=== PATIENT | male | born 1970 | race Two or more races ===

== ENCOUNTER 2023-11-26 01:47 | Emergency (ER) | payer MEDICAID ==
[~2023-11-26] VITALS: Ht 167.6 cm; Wt 110.0 kg
[~2023-11-26 01:47] MED LIST: CLIN1CAP70; SULF-35
[2023-11-26 01:56] VITALS: TEMP 98.8
[2023-11-26] MEDS: SODIUM CHLORIDE 0.9% 1,000 ML IV ONE (02:00)
[2023-11-26 02:13] LABS: Urine Bacteria None Seen /hpf (None Seen)
[2023-11-26 02:15] VITALS: O2SAT 95; O2SAT 96
[2023-11-26] MEDS ORDERED: IOHEXOL 300 MG/ML 100ML BOTTLE IJ ONE (02:16)
[2023-11-26 02:36] LABS: Urine Blood 2+ /uL (Negative); Urine Clarity Clear (Clear); Urine Color Light-Yellow (Yellow); Urine Mucus FEW (None Seen); Urine Protein, UAD Negative (Negative); Urine Specific Gravity 1.015 (1.001-1.035); Urine Urobilinogen Normal (Negative); Urine WBC 1 /hpf (0 - 3)
[2023-11-26] MEDS: MORPHINE SULFATE 4 MG/ML SYR/VIAL IV ONE (02:41)
[2023-11-26] MEDS: ONDANSETRON HCL 4 MG/2 ML VIAL IV ONE (02:41)
[2023-11-26 02:48] LABS: Alanine Aminotransferase 51 U/L (7-40); Albumin 4.5 g/dL (3.2-4.8); Alkaline Phosphatase 185 U/L (46-116); Anion Gap 11 (5-15); Aspartate Aminotransferase 39 U/L (13-40); BUN/Creatinine Ratio 15.6 (10.0-20.0); Blood Urea Nitrogen 15 mg/dL (9-23); Calcium 9.5 mg/dL (8.7-10.4); Carbon Dioxide 21 mmol/L (20-30); Chloride 109 mmol/L (98-107); Glucose 113 mg/dL (74-106); Sodium 141 mmol/L (136-145)
[2023-11-26 02:49] LABS: Bilirubin, Total 0.5 mg/dL (0.2-1.0)
[2023-11-26 02:50] LABS: Lactic Acid w/Reflex 2.3 mmol/L (0.4-2.0)
[2023-11-26 02:58] LABS: Basophils # (auto) 0.1 10 ^3/uL (0-0.2); Basophils % (auto) 0.6 % (0.0-2.0); Eosinophils # (auto) 0.2 10 ^3/uL (0-0.8); Eosinophils % (auto) 1.7 % (0.0-7.0); Hematocrit 43.8 % (41.0-53.0); Hemoglobin 15.5 g/dL (13.5-17.5); Lymphocytes # (auto) 2.4 10 ^3/uL (0.4-5.4); Lymphocytes % (auto) 25.4 % (10.0-50.0); Mean Corpuscular Hemoglobin 30.4 pg (28.0-32.0); Mean Corpuscular Hgb Conc. 35.3 g/dL (32.0-36.0); Monocytes # (auto) 0.7 10 ^3/uL (0-1.3); Monocytes % (auto) 7.9 % (0.0-12.0); Neutrophils % (auto) 64.4 % (37.0-80.0); Nucleated Red Blood Cells % 0.1 %; Platelet Count (auto) 281 10^3/uL (140-450); Red Blood Cells 5.09 10^6/uL (4.5-5.90); White Blood Cell 9.3 10^3/uL (4.4-10.8)
[2023-11-26 03:02] LABS: Blood Alcohol < 3.0 mg/dL (<10)
[2023-11-26 03:31] LABS: Amphetamine Screen, Urine Pos (NEGATIVE); Barbiturate Scree,Urine Neg (NEGATIVE); Benzodiazephine Screen, Urine Neg (NEGATIVE); Cocaine Screen, Urine Neg (NEGATIVE)
[2023-11-26 03:32] LABS: Cannabinoid Screen, Urine Pos (NEGATIVE); Opiate Scree,Urine Neg (NEGATIVE); Phencyclidine Screen, Urine Neg (NEGATIVE)
[2023-11-26] MEDS ORDERED: TAMS-35 PO (04:04)
[2023-11-26 05:15] VITALS: BP 160/112; PULSE 76; RESP 18; O2SAT 96
== END 2023-11-26 05:15 | disposition home or self-care (01) ==
LOC: EDBD 01:47 → ER 01:47
DX: N23 Unspecified renal colic (principal); F17.210 Nicotine dependence, cigarettes, uncomplicated; Z79.899 Other long term (current) drug therapy
CPT/HCPCS: 36415; 74177; 80053; 80307; 80320; 81001; 83605; 84484; 85025; 93005; 96361; 96374; 96375; 99285; J2270; J2405; J7030; Q9967

== ENCOUNTER 2024-10-22 19:26 | Emergency (ER) | payer MEDICAID ==
[~2024-10-22] VITALS: Ht 177.8 cm; Wt 100.0 kg
[~2024-10-22 19:26] MED LIST changes: +TAMS-35 PO
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
[2024-10-22 20:40] LABS: Urine Protein, UAD Negative (Negative)
--- NOTE | 2024-10-22 21:05 | DVH ---
Procedure: US GALLBLADDER Study Date and Requested Time: 10/22/2024 08:20 PM History: RUQ pain Comparison: CT abdomen and pelvis 11/26/2023 Technique: Multiple high resolution younger-scale images obtained of the right upper quadrant of the abd omen with color Doppler for evaluation of blood flow and vascularity as indicated. Findings: Liver normal in size, measuring 14 cm in length, with heterogeneous echotexture and normal contours. No evidence of focal hepatic lesions, intrahepatic or extrahepatic ductal dilatation. Common bile abhay t measures 0.5 cm in diameter. Gallbladder unremarkable with no evidence of abnormal wall thickening, gallstones, biliary sludge, or pericholecystic fluid. Negative sonographic Wallace's sign. Pancreas only partially visualized due to overlying bowel gas but is otherwise unremarkable. Right kidney measures 0.4 cm in length, with normal contours, echotexture, and cortical thickness. No evidence of hydronephrosis. Complex right renal Upper to the interpolar region 1.4 cm cyst with asso ciated calcifications. Partially visualized inferior vena cava unremarkable. Impression: Complex right renal upper to interpolar region 1.4 cm cyst with associated calcifications. Renal prot ocol CT should be considered for further evaluation. Mild hepatic steatosis.
[2024-10-22 21:31] LABS: Hematocrit 46.3 % (41.0-53.0); Hemoglobin 16.0 g/dL (13.5-17.5); Mean Corpuscular Hemoglobin 29.9 pg (28.0-32.0); Mean Corpuscular Volume 86.5 fL (80.0-100.0); Nucleated Red Blood Cells % 0.1 %
[2024-10-22 21:41] LABS: Albumin 4.6 g/dL (3.2-4.8); Anion Gap 9 (5-15); BUN/Creatinine Ratio 17.7 (10.0-20.0); Blood Urea Nitrogen 20 mg/dL (9-23); Calcium 9.6 mg/dL (8.7-10.4); Carbon Dioxide 24 mmol/L (20-31); Lipase 43 U/L (12-53); Potassium 3.9 mmol/L (3.5-5.1); Sodium 141 mmol/L (136-145); Total Protein 6.8 g/dL (5.7-8.2)
[2024-10-22 21:42] LABS: Bilirubin, Total 0.6 mg/dL (0.2-1.0)
[2024-10-22 21:47] LABS: Alanine Aminotransferase 45 U/L (7-40); Alkaline Phosphatase 150 U/L (46-116); Chloride 108 mmol/L (98-107); Glucose 110 mg/dL (74-106)
--- NOTE | 2024-10-22 23:10 | DVH ---
Exam: CT CT AB PEL WITH IV CON ONLY History: right sided pain, renal mass COMPARISON: CT CT AB PEL WITH IV CON ONLY on DOS: 11/26/23 Technique: Multidetector spiral CT of the abdomen and pelvis was performed from lung bases to pubic s ymphysis. Intravenous contrast was administered during this examination. Portal venous imaging was obtained. Axial, coronal and sagittal multiplanar reformats were performed by the technologist on a separate workstation. Radiation Dose : 1. Abdomen/Pelvis: CTDIvol 26.5 mGy, DLP 1429 mGy*cm. CONTRAST: Type of contrast: Omnipaque Contrast injected: 100 ml Findings: Lung Bases: No acute or significant lung base finding. Normal heart size. No pleural or pericardial effusion. Liver: The liver is normal in size. No focal lesions. Normal hepatic vascular enhancement. Diffuse s teatosis. Gallbladder and Biliary Tree: Unremarkable Spleen: Unremarkable Pancreas: The pancreas is normal in appearance without focal lesions or abnormal enhancement. Adrenal Glands: Unremarkable Kidneys: No hydronephrosis. Multiple bilateral renal cysts are seen Bladder: Unremarkable Bowel: The stomach is grossly normal in appearance. Concentric wall thickening throughout the colon m ay reflect underdistention versus mild colitis. The appendix is not visualized; however, no secondar y findings of acute appendicitis identified. Ascites: Absent Lymphadenopathy: No mesenteric, retroperitoneal or periportal lymphadenopathy. Abdominal Wall and Mesentery: Unremarkable. Vasculature: The visualized abdominal aorta is normal in size and caliber. Abdominal and pelvic vess els demonstrate normal enhancement. Pelvic Organs: Unremarkable Musculoskeletal: No aggressive focal bony lesions, acute fractures or dislocation. Surgical fixation hardware is seen in the right hip. Chronic fracture deformity is seen in the right acetabulum with ad jacent heterotopic ossification. IMPRESSION: 1. Concentric wall thickening throughout the colon may reflect underdistention versus mild colitis. Radiation optimization: All CT scans at this facility use at least one of these dose optimization kaitlin hniques: automated exposure control mA and/or kV adjustment per patient size (includes targeted exam s where dose is matched to clinical indication) or iterative reconstruction.
[2024-10-22] MEDS: IOHEXOL 300 MG/ML 100ML BOTTLE IJ ONE (23:17)
[2024-10-22] MEDS: SODIUM CHLORIDE 0.9% 1,000 ML IVB ONE (23:25)
[2024-10-23 01:11] VITALS: BP 118/95; PULSE 66; RESP 19; TEMP 98.2; O2SAT 95
== END 2024-10-23 01:11 | disposition home or self-care (01) ==
LOC: ER 19:26
DX: N28.1 Cyst of kidney, acquired (principal); R10.11 Right upper quadrant pain; F17.210 Nicotine dependence, cigarettes, uncomplicated; F10.90 Alcohol use, unspecified, uncomplicated; I10 Essential (primary) hypertension; E66.9 Obesity, unspecified; Z68.31 Body mass index [BMI] 31.0-31.9, adult; Z98.890 Other specified postprocedural states; Z79.899 Other long term (current) drug therapy
CPT/HCPCS: 36415; 74177; 76705; 80053; 81001; 83690; 85025; 96360; 99285; J7030; Q9967